=== PATIENT | female | born 1970 ===

== ENCOUNTER 2017-11-13 13:49 | Emergency (ER) | payer BC ==
--- NOTE | 2017-11-13 15:29 | UC ---
Complaint Female HPI - HPI Summary HPI Summary: DEVELOPED LOW BACK PAIN NIGHT. THIS MORNING ONSET OF DYSURIA AND URINARY FREQUENCY/URGENCY. STATES HER URINE IS VERY DARK. NO FEVER. NO NAUSEA. - History Of Current Complaint Chief Complaint: [facility]CGU Stated Complaint: UTI Time Seen by Provider: 11/13/17 15:06 Hx Obtained From: Patient Hx Last Menstrual Period: 10/28/17 Onset/Duration: Gradual Onset, Lasting Hours, Still Present - Yes she said Indira) because she is here visiting into this and because she is visiting out of town and she does not Indira are from here and is here elderly (mother. She did Timing: Constant Severity Initially: Moderate Severity Currently: Moderate Pain Intensity: 7 Pain Scale Used: 0-10 Numeric Character: Burning Aggravating Factor(s): Urination Associated Signs And Symptoms: Positive: Back Pain. Negative: Fever, Vaginal Discharge, Nausea - Allergies/Home Medications Allergies/Adverse Reactions: Allergies Allergy/AdvReac Type Severity Reaction Status Date / Time No Known Allergies Allergy Verified 11/13/17 14:15 PMH/Surg Hx/FS Hx/Imm Hx Previously Healthy: Yes - Surgical History Surgical History: None - Family History Known Family History: Positive: Cardiac Disease, Hypertension - Social History Alcohol Use: Occasionally Substance Use Type: None Smoking Status (MU): Former Smoker Review of Systems Constitutional: Negative Respiratory: Negative Cardiovascular: Negative Gastrointestinal: Negative Genitourinary: Dysuria, Hematuria, Frequency, Urgency All Other Systems Reviewed And Are Negative: Yes Physical Exam Triage Information Reviewed: Yes Appearance: Well-Appearing, No Pain Distress, Well-Nourished Vital Signs: Initial Vital Signs Temp 98 F 11/13/17 14:09 Pulse 75 11/13/17 14:09 Resp 15 11/13/17 14:09 BP 126/85 11/13/17 14:09 Pulse Ox 99 11/13/17 14:09 Vital Signs Reviewed: Yes Eyes: Positive: Conjunctiva Clear ENT: Positive: Hearing grossly normal Neck: Positive: Supple Respiratory: Positive: No respiratory distress, No accessory muscle use Cardiovascular: Positive: Pulses Normal Abdomen Description: Positive: Soft, Other: - MILD SUPRAPUBIC TTP. Negative: CVA Tenderness (R), CVA Tenderness (L), Distended, Guarding Musculoskeletal: Positive: No Edema Neurological: Positive: Alert Psychological: Positive: Age Appropriate Behavior Skin: Negative: rashes Diagnostics - Laboratory Diagnostic Studies Completed/Ordered: URINE DIP SP. GR. 1.030, TRACE LEUKS, 3+ BLOOD, 2+ PROTEIN, TRACE KETONES Complaint Female Dx - Differential Dx/Diagnosis Provider Diagnoses: UTI Discharge - Sign-Out/Discharge Documenting (check all that apply): Discharge/Admit/Transfer - Discharge Plan Condition: Stable Disposition: HOME Prescriptions: Phenazopyridine TAB* [Pyridium TAB*] 200 mg PO TID #6 tab Sulfamethox/Trimethoprim DS* [Bactrim DS 800/160 TAB*] 1 tab PO BID #10 tab Patient Education Materials: Urinary Tract Infection in Women (ED) Referrals: No Primary Care Phys,NOPCP [Primary Care Provider] - Additional Instructions: WE HAVE SENT YOUR URINE FOR CULTURE AND WILL CALL YOU IF WE NEED TO CHANGE YOUR MANAGEMENT. STAY WELL HYDRATED. TAKE THE ANTIBIOTIC TWICE DAILY FOR THE FULL 5 DAYS. - Billing Disposition and Condition Condition: STABLE Disposition: Home
--- NOTE | 2017-11-15 07:04 | UC ---
- Progress Note Progress Note: Uriine culture returned; S Sapro; on Bactrim. No change needed. Ryan Chiang MD 11-15-17 Discharge - Sign-Out/Discharge Documenting (check all that apply): Post-Discharge Follow Up - Discharge Plan Condition: Stable Disposition: HOME Prescriptions: Phenazopyridine TAB* [Pyridium TAB*] 200 mg PO TID #6 tab Sulfamethox/Trimethoprim DS* [Bactrim DS 800/160 TAB*] 1 tab PO BID #10 tab Patient Education Materials: Urinary Tract Infection in Women (ED) Referrals: No Primary Care Phys,NOPCP [Primary Care Provider] - Additional Instructions: WE HAVE SENT YOUR URINE FOR CULTURE AND WILL CALL YOU IF WE NEED TO CHANGE YOUR MANAGEMENT. STAY WELL HYDRATED. TAKE THE ANTIBIOTIC TWICE DAILY FOR THE FULL 5 DAYS. - Billing Disposition and Condition Condition: STABLE Disposition: Home
== END 2017-11-13 15:31 | disposition home or self-care (01) ==
LOC: UCEAST 13:49
DX: N39.0 Urinary tract infection, site not specified (principal); M54.5 Low back pain; Z87.891 Personal history of nicotine dependence
CPT/HCPCS: 81003; 87077; 87086; 99202; G0463